=== PATIENT | male | born 2000 | race Caucasian/White ===

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

== ENCOUNTER 2021-12-03 14:00 | Emergency (ER) | payer OTHER ==
[2021-12-03 14:23] VITALS: BP 124/88
--- NOTE | 2021-12-03 14:31 | ED Physician Documentation ---
PD HPI WOUND RECHECK - Stated complaint Stated Complaint: REMOVAL OF STITCHES - Chief complaint Chief Complaint: General - Histroy obtained from History obtained from: Patient - History of Present Illness Location: Right Hand (little finger aorund nailbed.) Timing - onset: How many days ago (7) Associated symptoms: No: Fever, Redness, Drainage Recently seen: Emergency Dept (seen in ER for finger laceration with sutures. He states healing okay without infection. Has been cleaning it. No ointment.) Review of Systems Musculoskeletal: denies: Extremity swelling Neurologic: denies: Focal weakness, Numbness PD PAST MEDICAL HISTORY - Past Medical History Past Medical History: No - Past Surgical History Past Surgical History: Yes - Present Medications Home Medications: Ambulatory Orders Medication Instructions Recorded Confirmed No Known Home Medications 07/24/19 07/24/19 - Allergies Allergies/Adverse Reactions: Allergies Allergy/AdvReac Type Severity Reaction Status Date / Time No Known Drug Allergies Allergy Verified 11/26/21 12:22 - Social History Does the pt smoke?: No Smoking Status: Never smoker Does the pt drink ETOH?: No Does the pt have substance abuse?: No - Immunizations Immunizations are current?: Yes - POLST Patient has POLST: No PD ED PE NORMAL - Vitals Vital signs reviewed: Yes - General General: Alert and oriented X 3, No acute distress, Well developed/nourished - Derm Derm: Normal color, Warm and dry - Extremities Extremities: Other (right little finger with sutured lac around nailbed without signs of infection. Mild scabbing/dried blood on seam. ) - Neuro Neuro: No motor deficit, No sensory deficit Results - Vitals Vitals: Vital Signs - 24 hr 12/03/21 14:22 Temperature 36.5 C Heart Rate 89 Respiratory 17 Rate Blood Pressure 124/88 H O2 Saturation 99 Oxygen O2 Source Room air PD MEDICAL DECISION MAKING - ED course Complexity details: considered differential (sutures removed without problems. Bandaid applied. ), d/w patient Departure - Departure Disposition: 01 Home, Self Care Clinical Impression: Visit for suture removal Condition: Stable Record reviewed to determine appropriate education?: Yes Instructions: ED Wound Check Sutr Remove No Infec Comments: Continue with the wound care of cleaning soap and water and apply ointment once or twice daily to help soften the wound edges. No forceful activity with that finger for another week or so but otherwise activity and exercises okay. Recheck if signs of infection. Discharge Date/Time: 12/03/21 15:21
== END 2021-12-03 15:21 | disposition home or self-care (01) ==
LOC: ED 14:00
DX: S61.216D Laceration without foreign body of right little finger without damage to nail, subsequent encounter (principal)
CPT/HCPCS: 99281